=== PATIENT | female | born 1945 | race Caucasian/White ===

== ENCOUNTER 2019-01-03 17:15 | Emergency (ER) | payer MEDICARE, BC ==
[~2019-01-03] VITALS: Ht 160 cm; Wt 71.7 kg
--- NOTE | 2019-01-03 17:30 | NUR ---
pt ambulated with steady gait. c/o BLE pain, R calf > left. 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 skin intact, denies any trauma/ injury. denies any aggravating events. pt denies any SOB, breathing even and unlabored. denies any / GI distress. fall precautions implemented per protocol, bed low, s/r up x2.
--- NOTE | 2019-01-03 17:35 | NUR ---
ERMD at bedside for MSE
[2019-01-03] MEDS ORDERED: MULT1TAB73 PO (17:40)
[2019-01-03] MEDS ORDERED: BI EST (17:40)
[2019-01-03] MEDS ORDERED: CYANOCOBALAMIN (17:40)
[2019-01-03] MEDS ORDERED: LIPITOR (17:40)
[2019-01-03] MEDS ORDERED: OMEP20TA20 PO (17:40)
[2019-01-03] MEDS ORDERED: [UNRECOGNIZED DRUG - OTHER] (17:40)
[2019-01-03] MEDS ORDERED: THYROID (17:40)
[2019-01-03] MEDS ORDERED: CALC1TAB3 PO (17:40)
[2019-01-03] MEDS ORDERED: ASPI-605 PO (17:40)
[2019-01-03] MEDS ORDERED: [UNRECOGNIZED DRUG - OTHER] (17:40)
[2019-01-03] MEDS ORDERED: UBID1CAP60 PO (17:40)
--- NOTE | 2019-01-03 17:41 | NUR ---
PT DOES NOT REMEMBER HER HOME MEDICATION DOSAGES.
--- NOTE | 2019-01-03 18:29 | NUR ---
Patient discharged to home in stable conditon. pt able to ambulate with steady gait. Written and verbal after care instructions given. Patient verbalizes understanding of instructions.
[2019-01-03 18:30] VITALS: BP 139/75
== END 2019-01-03 18:28 | disposition home or self-care (01) ==
LOC: ER 17:26
DX: M79.652 Pain in left thigh (principal); M79.651 Pain in right thigh; Z79.899 Other long term (current) drug therapy; Z79.82 Long term (current) use of aspirin
CPT/HCPCS: A4663